=== PATIENT | female | born 1975 | race Caucasian/White ===

== ENCOUNTER 2017-09-15 06:53 | Emergency (ER) | payer MEDICAID ==
[~2017-09-15] VITALS: Ht 167.6 cm; Wt 100.0 kg
[2017-09-15] MEDS ORDERED: PERTUSS(ACELL),DIPH,TET VAC/PF 0.5 ML VIAL IM ONE (07:30)
[2017-09-15] MEDS ORDERED: LIDOCAINE HCL 1% 10 ML VIAL INJ ONE (07:30)
[2017-09-15] MEDS ORDERED: BACITRACIN 0.9 GM PACKET OINTMENT TP ONE (08:15)
[2017-09-15 08:28] VITALS: BP 148/90
== END 2017-09-15 08:31 | disposition home or self-care (01) ==
LOC: EMS 06:54
DX: S61.412A Laceration without foreign body of left hand, initial encounter (principal); F17.210 Nicotine dependence, cigarettes, uncomplicated; Z88.8 Allergy status to other drugs, medicaments and biological substances; W45.8XXA Other foreign body or object entering through skin, initial encounter; Y93.89 Activity, other specified; Y92.89 Other specified places as the place of occurrence of the external cause; Y99.8 Other external cause status
CPT/HCPCS: 12001; 90471; 90715; 99283; J3490

== ENCOUNTER 2018-03-26 00:46 | Emergency (ER) | payer MEDICAID ==
[~2018-03-26] VITALS: Ht 165.1 cm; Wt 100.0 kg
[2018-03-26] MEDS ORDERED: IBUPROFEN 600 MG TABLET PO ONE (03:15)
[2018-03-26] MEDS ORDERED: BENZONATATE 100 MG CAPSULE PO ONE (03:15)
[2018-03-26 04:13] VITALS: BP 126/55
== END 2018-03-26 04:17 | disposition home or self-care (01) ==
LOC: EMS 00:46
DX: J02.9 Acute pharyngitis, unspecified (principal); R11.2 Nausea with vomiting, unspecified; J45.909 Unspecified asthma, uncomplicated; F17.210 Nicotine dependence, cigarettes, uncomplicated; Z86.73 Personal history of transient ischemic attack (TIA), and cerebral infarction without residual deficits; Z88.8 Allergy status to other drugs, medicaments and biological substances
CPT/HCPCS: 87430; 99285

== ENCOUNTER 2021-06-09 16:05 | Emergency (ER) | payer MEDICAID, OTHER ==
[~2021-06-09] VITALS: Ht 170.2 cm; Wt 90.9 kg
[2021-06-09 16:16] VITALS: BP 130/84
[2021-06-09] MEDS ORDERED: ALBU8HFA IH (16:32)
== END 2021-06-09 17:58 | disposition left against medical advice (07) ==
LOC: EMS 16:12
DX: M54.5 Low back pain (principal); Z53.21 Procedure and treatment not carried out due to patient leaving prior to being seen by health care provider